=== PATIENT | male | born 1980 | race Caucasian/White ===

== ENCOUNTER 2016-08-18 02:27 | Emergency (ER) | payer MEDICARE ==
[~2016-08-18] VITALS: Ht 182.9 cm; Wt 93.0 kg
[2016-08-18] MEDS ORDERED: CELE40TA PO (02:42)
[2016-08-18] MEDS ORDERED: SERO200T PO (02:42)
[2016-08-18] MEDS ORDERED: AMIT50TA PO (02:42)
[2016-08-18] MEDS ORDERED: DERMABOND TOPICAL SKIN ADHESIVE TOP ONE (04:15)
[2016-08-18 04:54] VITALS: BP 136/75
== END 2016-08-18 04:58 | disposition home or self-care (01) ==
LOC: M ED 03:35
DX: S01.01XA Laceration without foreign body of scalp, initial encounter (principal); S01.81XA Laceration without foreign body of other part of head, initial encounter; S80.12XA Contusion of left lower leg, initial encounter; S40.021A Contusion of right upper arm, initial encounter; Y04.0XXA Assault by unarmed brawl or fight, initial encounter; Y92.410 Unspecified street and highway as the place of occurrence of the external cause; Y93.9 Activity, unspecified; Y99.9 Unspecified external cause status; F32.9 Major depressive disorder, single episode, unspecified; Z87.891 Personal history of nicotine dependence; Z79.899 Other long term (current) drug therapy